=== PATIENT | female | born 1960 | race Caucasian/White ===

== ENCOUNTER 2018-05-29 21:25 | Emergency (ER) | payer MEDICARE, BC ==
[~2018-05-29] VITALS: Ht 162.6 cm; Wt 59.0 kg
[~2018-05-29 21:25] MED LIST: AMBIEN5 MG PO; BACTRIM DS TAB1 EAC1 PO; CIPRO500 MG PO; DIAZEPAM 10 MG10 M1 PO; NEURONTIN 300300 M1 PO; NORCO 5-325 TA1 EACH PO; OXYCODONE HCL 55 MG PO; OXYCONTIN20 M1 PO; PERCOCET PO; PHENERGAN 25 MG25 M1 PO; ZANAFLEX4 MG PO; ZOFRAN ODT4 MG PO
[2018-05-29 21:57] LABS: ABSOLUTE EOSINOPHILS 0.1 thou/uL (0.0-0.7); ABSOLUTE LYMPHOCYTES 4.3 thou/uL (0.8-5.3); WBC 9.7 thou/uL (4.0-11.0)
[2018-05-29 22:00] LABS: ABSOLUTE BASOPHILS 0.1 thou/uL (0.0-0.2); ABSOLUTE MONOCYTES 0.6 thou/uL (0.0-1.2); ABSOLUTE NEUTROPHILS 4.7 thou/uL (1.6-8.1); BASOPHILS 0.6 %; HEMATOCRIT 45.6 % (37.0-47.0); HEMOGLOBIN 15.4 gm/dL (12.0-15.0); MCH 35.2 pg (26.0-34.0); MCHC 33.8 g/dL (28.0-37.0); MCV 104.2 fL (80.0-100.0); MONOCYTES 6.4 %; NUCLEATED RBCS 0 /100WBC; PLATELET COUNT* 363 thou/uL (150-400); RBC 4.37 mil/uL (4.20-5.00); RDW-CV 15.7 % (10.5-14.5)
[2018-05-29 22:10] LABS: BUN 10 mg/dL (7-18); CALCIUM 8.7 mg/dL (8.5-10.1)
[2018-05-29 22:13] LABS: ALBUMIN 3.6 g/dL (3.4-5.0)
[2018-05-29 22:19] LABS: ANION GAP 16 mmol/L (7-16); CHLORIDE 105 mmol/L (98-107); CO2 21 mmol/L (21-32); CREATININE 0.4 mg/dL (0.6-1.3); GLUCOSE 110 mg/dL (70-99); POTASSIUM 3.4 mmol/L (3.5-5.1); SODIUM 142 mmol/L (136-145)
[2018-05-29 22:26] LABS: ALKALINE PHOSPHATASE 79 U/L (46-116); SGOT 35 U/L (15-37); SGPT 53 U/L (30-65); TOTAL BILIRUBIN 0.1 mg/dL (<0.1-1.0); TOTAL PROTEIN 7.9 g/dL (6.4-8.2); TROPONIN-I LEVEL <0.06 ng/mL (<0.06)
[2018-05-29 22:56] LABS: URINE BILIRUBIN NEGATIVE (Negative); URINE BLOOD 2+ (Negative); URINE CLARITY CLEAR; URINE COLOR YELLOW; URINE GLUCOSE-RANDOM NEGATIVE (Negative); URINE KETONES NEGATIVE (Negative); URINE LEUKOCYTES-REFLEX NEGATIVE (Negative); URINE NITRITE-REFLEX NEGATIVE (Negative); URINE PROTEIN NEGATIVE (Negative); URINE SPECIFIC GRAVITY <= 1.005 (1.005-1.030); URINE UROBILINOGEN 0.2 E.U./dl (0.2-1.0)
[2018-05-29 23:04] LABS: AMP/METHAMP Negative (Negative); BARBITURATES Negative (Negative); BENZODIAZEPINES Negative (Negative); COCAINE Negative (Negative); METHADONE Negative (Negative); OPIATES POSITIVE (Negative); PCP Negative (Negative); THC Negative (Negative)
[2018-05-29 23:07] LABS: ESR (SEDRATE) 2 mm/hr (0-30)
[2018-05-29 23:12] LABS: SQUAMOUS 0-3 Few /LPF (0-3); URINE RBC 3-10 Few /HPF (0-2); URINE WBC-REFLEX None Seen /HPF (0-5)
[2018-05-29 23:13] LABS: BACTERIA-REFLEX 1-9 Few /HPF (None Seen); CASTS None Seen /LPF (None Seen); CRYSTALS None Seen /LPF (None Seen); MUCUS 0-3 Light strn/LPF (None Seen)
[2018-05-29 23:40] VITALS: BP 150/84
--- NOTE | 2018-05-30 10:37 | EKG ---
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: JULIUS : 1960 Requested By: Aniyah Eric Order Number: [id number] MD: Yuriy Mora Measurements Intervals [place] Rate: 117 P: 55 FL: 145 QRS: 27 QRSD: 108 T: 44 QT: 337 QTc: 471 Interpretive Statements Sinus tachycardia nonspecific st changes Probable left atrial enlargement RSR' in V1 or V2, right VCD or RVH Compared to ECG 05/16/2017 06:54:09 Sinus rhythm no longer present Electronically Signed On 05-30-2018 10:37:44 CDT by Yuriy Mora [email or web address] <ELECTRONICALLY SIGNED> By: Yuriy Mora MD, FACBayron 05/30/18 [facility] 06 06 Yuriy Mora MD, [facility] /EPI
== END 2018-05-29 23:40 | disposition home or self-care (01) ==
LOC: M.ERS 21:25
PROVIDERS: Emergency Medicine
DX: G89.29 Other chronic pain (principal); M25.552 Pain in left hip; F43.22 Adjustment disorder with anxiety; M54.2 Cervicalgia; M54.9 Dorsalgia, unspecified; F17.210 Nicotine dependence, cigarettes, uncomplicated; Z96.642 Presence of left artificial hip joint; Z79.899 Other long term (current) drug therapy

== ENCOUNTER 2018-06-27 12:22 | Emergency (ER) | payer MEDICARE, BC ==
[~2018-06-27] VITALS: Ht 162.6 cm; Wt 58.1 kg
[2018-06-27] MEDS ORDERED: PERCOCET 10-321 EACH PO (12:38)
[2018-06-27] MEDS ORDERED: MUSCLE RELAXER (12:39)
[2018-06-27] MEDS ORDERED: ROBAXIN500 MG PO (13:48)
[2018-06-27 13:59] VITALS: BP 118/70
== END 2018-06-27 14:00 | disposition home or self-care (01) ==
LOC: M.ERS 12:22
DX: S06.0X0A Concussion without loss of consciousness, initial encounter (principal); S39.012A Strain of muscle, fascia and tendon of lower back, initial encounter; S63.8X2A Sprain of other part of left wrist and hand, initial encounter; G89.29 Other chronic pain; M54.2 Cervicalgia; F17.210 Nicotine dependence, cigarettes, uncomplicated; Z96.642 Presence of left artificial hip joint; Z90.710 Acquired absence of both cervix and uterus; W07.XXXA Fall from chair, initial encounter; Y93.E1 Activity, personal bathing and showering; Y92.89 Other specified places as the place of occurrence of the external cause; Y99.8 Other external cause status